=== PATIENT | male | born 1965 | race Caucasian/White ===

== ENCOUNTER 2018-05-18 01:47 | Outpatient (CLI) | payer OTHER, SELFPAY | END 2018-05-18 02:07 | PROVIDERS: PCP Family Medicine; Visit Provider Family Medicine | DX: Z12.5 Encounter for screening for malignant neoplasm of prostate (principal) | CPT/HCPCS: 36415; 84153 ==

== ENCOUNTER 2018-08-15 00:08 | Outpatient (CLI) | payer OTHER, SELFPAY ==
[2018-08-15 10:02] LABS: Hemoglobin A1C 6.1 % (4.5-6.2)
== END 2018-08-15 00:28 ==
PROVIDERS: PCP Family Medicine; Visit Provider Family Medicine
DX: E11.9 Type 2 diabetes mellitus without complications (principal)
CPT/HCPCS: 36415; 83036

== ENCOUNTER 2018-11-20 02:39 | Outpatient (CLI) | payer OTHER, SELFPAY ==
[2018-11-20 10:51] LABS: CREATININE 0.79 mg/dL (0.70-1.30)
[2018-11-20 11:22] LABS: COMMENT (LAB VIEW ONLY) 241.11 mg/dL; Microalb ug/mg Crea 8.7 ug/mg Cr
== END 2018-11-20 02:59 ==
PROVIDERS: PCP Family Medicine; Visit Provider Family Medicine
DX: E11.9 Type 2 diabetes mellitus without complications (principal)
CPT/HCPCS: 36415; 82043; 82565; 82570; 83036

== ENCOUNTER 2020-03-14 04:48 | Outpatient (CLI) | payer OTHER, SELFPAY ==
[2020-03-14 10:15] LABS: COMMENT (LAB VIEW ONLY) 149.84 mg/dL; Microalb ug/mg Crea 8.7 ug/mg Cr
[2020-03-14 10:31] LABS: CREATININE 0.81 mg/dL (0.70-1.30); Calculated LDL 139 mg/dL (<100); Cholesterol 204 mg/dL (<200); HDL Cholesterol 34 mg/dL (40-60); Potassium 4.3 mmol/L (3.5-5.1); Triglyceride 159 mg/dL (<150)
== END 2020-03-14 05:08 ==
PROVIDERS: PCP Family Medicine; Visit Provider Family Medicine
DX: E78.5 Hyperlipidemia, unspecified (principal); I10 Essential (primary) hypertension; E11.9 Type 2 diabetes mellitus without complications
CPT/HCPCS: 36415; 80061; 82043; 82565; 82570; 84132

== ENCOUNTER 2021-03-01 19:15 | Outpatient (REF) | payer OTHER, SELFPAY ==
[2021-03-03 11:37] LABS: COVID-19 RT-PCR UVMMC Result Negative (Negative)
== END 2021-03-01 19:16 | disposition home or self-care (01) ==
LOC: LBN 19:15
PROVIDERS: PCP Family Medicine; Visit Provider Nurse Practitioner Family
DX: J02.9 Acute pharyngitis, unspecified (principal); Z20.822 Contact with and (suspected) exposure to COVID-19
CPT/HCPCS: U0003; 87081

== ENCOUNTER 2021-06-22 03:15 | Outpatient (CLI) | payer OTHER, SELFPAY ==
[2021-06-22 08:16] LABS: Hemoglobin A1C 6.8 % (<5.7)
[2021-06-22 08:42] LABS: CREATININE 0.9 mg/dL (0.70-1.30); Calculated LDL 130 mg/dL (<100); Cholesterol 200 mg/dL (<200); HDL Cholesterol 36 mg/dL (40-60); Potassium 4.6 mmol/L (3.5-5.1); Triglyceride 174 mg/dL (<150)
== END 2021-06-22 03:16 | disposition home or self-care (01) ==
LOC: LBO 03:15
PROVIDERS: PCP Family Medicine; Visit Provider Family Medicine
DX: I10 Essential (primary) hypertension (principal); E78.5 Hyperlipidemia, unspecified; R73.9 Hyperglycemia, unspecified
CPT/HCPCS: 36415; 80061; 82565; 83036; 84132

== ENCOUNTER 2022-05-10 13:04 | Day surgery (SDC) | payer OTHER, SELFPAY ==
--- NOTE | 2022-05-09 20:56 | W.COLOREPORT ---
Date of service: 05/10/22 Time of Service: 14:20 Colonoscopy Report Date of procedure: 05/10/22 Pre-op diagnosis general: Routine health maintenance screening colonoscopy Post-op diagnosis procedure note: other (Cecal polyps, rectal polyp) Procedure: Screening colonoscopy Surgeon: Gordo Freeman Anesthesia Type: General:No Airway Estimated blood loss (mL): 20 Pathology: other (Cecal polyp around 95 cm, rectal polyp around 25 cm) Complications: None Disposition: same day Indications: Santosh is a 57-year-old male who was undergone screening colonoscopy in the past. He was diagnosed with a tubular adenoma, and is here in follow-up for another routine screening test Prep: Miralax/Dulcolax Procedure Start Time: 13:53 Procedure End Time: 14:10 Retraction Time: 14 Procedure Description: After the induction of monitored anesthetic care, and with the patient in left lateral decubitus position, I began by performing an external anorectal exam.? Perineum and skin were normal, as was the anal verge.? There was no evidence of external hemorrhoids.? Next, I performed a digital rectal exam.? I did not appreciate any abnormal findings.? Next, I advanced a colonoscope into the rectal vault.? I performed retroflexion.? I did not see signs of pathologic internal hemorrhoids.? Using insufflation, I then advanced the colonoscope beyond the rectal folds and into the sigmoid colon before advancing towards the cecum.? The quality of the prep was excellent.? The scope was noted to be in the cecum by identification of the ileocecal valve and appendiceal orifice.?Around 95 cm from the anal verge I identified a 1 cm polyp. ?It appeared in character. ?I was able to remove this with a hot snare. ?I examined the site, and there was minimal bleeding. ?Once this was completed, I continued to withdraw the scope and examine the remainder of the colonic mucosa. I then began withdrawing the colonoscope using repeated irrigation as necessary for full evaluation of the colonic mucosa. Around 25 cm from the anal verge I identified a 0.25 cm polyp. ?It appeared sessile in character. ?I was able to remove this with a cold forcep. ?I examined the site, and there was minimal bleeding. ?Once this was completed, I continued to withdraw the scope and examine the remainder of the colonic mucosa. ?Once the scope was withdrawn to the level of the rectum, great care was taken to examine portions of the rectal folds.? Finally, the scope was withdrawn and the patient was brought to the same-day surgery recovery unit as the anesthetic wore off. ?The findings and instructions were shared with the patient prior to discharge.
--- NOTE | 2022-05-09 20:56 | W.PM.DSUDISC ---
Date of service: 05/10/22 Time of Service: 14:36 Discharge Plan Disposition Patient Disposition: HOME Condition: Good Discharge Details Reason For Visit: Colonoscopy Attending Provider: Gordo Freeman Primary Care Provider: Matthias Jimenes Home Meds and New Rx's Prescriptions: Discontinued polyethylene glycol 3350 17 gram/dose powder 238 g PO ONCE Qty: 238 0RF Rx Instructions: take per colonoscopy instructions bisacodyl [Dulcolax (bisacodyl)] 5 mg tablet,delayed release (DR/EC) 5 mg PO ONCE Qty: 4 0RF Rx Instructions: take per colonoscopy instructions No Action Trulicity 3 mg/0.5 mL pen injector 3 mg subcut QWEEK Qty: 2 11RF acetaminophen [Tylenol Extra Strength] 500 MG tablet 1,000 mg PO daily prn (DME) blood-glucose meter [OneTouch Verio Meter] 1 EACH misc Miscellaneous BID Qty: 1 (DME) OneTouch Verio test strips Strip 1 ea Miscellaneous BID Qty: 90 3RF Rx Instructions: test once/day (DME) lancets [OneTouch UltraSoft Lancets] Misc 1 ea Miscellaneous BID 90 Days Qty: 90 3RF Rx Instructions: test once/day fluticasone propionate 50 mcg/actuation spray,suspension 2 spray intranasal DAILY Qty: 48 3RF Rx Instructions: administer into each nostril metformin 500 mg tablet extended release 24 hr 500 mg PO QPM Qty: 90 3RF losartan 25 mg tablet 25 mg PO DAILY Qty: 90 3RF clotrimazole 1 % cream 1 applic topical BID PRN Discharge Instructions Additional Instructions: 1. If tolerated, consume a soft, low fiber diet for 1-2 days. 2[address] Do not drive, drink alcohol, operate machinery, make critical decisions, or do activities that require coordination or balance for 24 hours. 3. Because air was put into your colon during the procedure, expelling air from your rectum (passing gas or farting) is normal. 4. You may not have a bowel movement for 1-3 days because of the colonoscopy prep. This is normal. 5. Go directly to the emergency room if you notice any of the following: Develop chills (warm to touch), or if you have a thermometer and your temperature is above 101 Difficulty breathing or difficultly swallowing Persistent vomiting Severe abdominal pain, other than gas cramps Severe chest pain Black, tarry stools Any bleeding ? exceeding one tablespoon 6. Call your physician if the site where your intravenous was started becomes red, swollen, painful, and warm to touch. 7. Your physician has reviewed your pre-procedure medications. Please continue to take those medications as previously ordered. You will be given specific information/education regarding any changes to your medications before leaving. Activity:: Activity as Tolerated Diet:: As Tolerated Discharge Orders Discharge Orders: Discharge Order (Routine); Ordered 05/09/22 Ordered By: Gordo Freeman DS: Diagnosis Discharge Diagnosis (1) Colorectal polyp detected on colonoscopy: Status: Acute Asessment and Plan: I will contact you with the results of the biopsies once they are available.
--- OUTSIDE RECORDS SUMMARY | 2022-05-10 13:06 | XMS_ITS | Encounter Summary ---
:1965 Author Organization [facility] Address [facility] [place] [address] Care Team Providers Name Role Phone Faustino Calvillo MD Primary Care Provider Encounter Details Date Type Department Care Team Description 07/28/2012 Orders Only Anesthesiology Kip Cowan MD [facility] [place] [address] [phone] [place], [place] [address] (Wo rk) Social History Tobacco Use Types Packs/Day Years Used Date Current Every Day Smoker Cigarettes 1 25 Smokeless Tobacco: Never Used Comments: avs information given Sex Assigned at Date Recorded Not on file documented as of this encounter Plan of Treatment Not on filedocumented as of this encounter Procedures Procedure Name Priority Date/Time Associated Diagnosis Comme nts FILM LIBRARY Routine 07/28/2012 7:30 AM Results f or this STORAGE ONLY PAIN EST procedure are in CLINIC C [facility] the results section. documented in this encounter Results Film Library-storage only pain clinic C-arm (07/28/2012 7:30 AM EST) Specimen (Source) Anatomical Collection Method Collection Time Re ceived Time Location / / Volume Laterality 07/28/2012 7:30 AM EST Narrative RAD - 02/21/2014 7:02 PM EDT This is a non-reportable exam. Procedure Note Олег Sanchez - 02/21/2014Formatti ng of this note might be different from the original. This is a non-reportable exam. Kip Cowan MD G FILM LIBRARY ORDERABLES Performing Organization Address City/State/ZIP Code Phon e Number RAD RAD [address] [place] [address] documented in this encounter Visit Diagnoses Not on filedocumented in this encounter Care Teams Clinical Ob Relationship Specialty Start Date End Date Faustino Calvillo MD PCP - General 05/04/12 [address] [place] [address] documented as of this encounter
--- OUTSIDE RECORDS SUMMARY | 2022-05-10 13:06 | XMS_ITS | Encounter Summary ---
:1965 Author Organization [facility] Address [address] [place] [address] Care Team Providers Name Role Phone Unknown, Provider Primary Care Provider Encounter Details Date Type Department Care Team Description 09/23/2014 Results Only [facility]- Latrice Carrillo, DO [phone] [facility] [place], [place] [id number] (Wo rk) Social History Tobacco Use Types Packs/Day Years Used Date Never Assessed Sex Assigned at Date Recorded Not on file documented as of this encounter Plan of Treatment Not on filedocumented as of this encounter Procedures Procedure Name Priority Date/Time Associated Diagnosis Comme [facility] SURGICAL PATHOLOGY Routine 09/23/2014 7:38 EDT Re sults for this procedure are i n the results section. documented in this encounter Results SURGICAL PATHOLOGY (09/23/2014 7:38 EDT) Pathology Report: SURGICAL PATHOLOGY REPORT [facility] Reports generated via electronic interface contain shweta ginal data; LABORATORY however they are lacking the format of the original re port. SERVICES Caution should be taken when reading/interpreting unfo rmatted reports. Name: ? TANYA GERMAIN ? Accession #: ? [id number] ? : ? 1965 (Age: 49) ??M ? Collect Date: ? 09/23/2014 ? Location: ? [facility] ? Receive Date: ? 015 ? Provider: LATRICE DUVALL DO Copy to: VIOLET VIERA MD ? Final Pathologic Diagnosis: A. COLON, SIGMOID, POLYP, BIOPSIES: - ??Fragments of tubular adenoma(s). B. COLON, DISTAL SIGMOID, POLYP, BIOPSY: - ??Juvenile-type polyp. Document reviewed and electronically signed by: SHRUTHI MCCOLLUM MD Report ??Date: 09/27/2014 13:43 By the signature above, the attending physician certif ies that he/she has personally conducted a gross and/or microscopic examin ation of the described specimens and rendered or confirmed the above diagnosi s. Specimen(s) Received: A. ?Sigmoid polyp B. ? Distal sigmoid polyp Clinical History: Rectal bleed Gross Description: A. ?Received in formalin labelled with proper p atient identification (initials R, K) and sigmoid polyp are three pink-vo tissues (0.6 x 0.3 x 0.1 cm to 0.6 x 0.4 x 0.3 cm). ??The largest fragment is b isected and entirely submitted in A1 and the two remaining fragments are copeland bmitted intact in A2. B. ?Received in formalin labelled with proper p atient identification (initials R, K) and distal sigmoid polyp is a single pink-vo polypoid tissue (0.4 x 0.4 x 0.3 cm). The margin is inked blue, the sp ecimen is bisected and entirely submitted in B1. Mirtha Gamboa 09/26/2014 9:39 AM End of Report Specimen Performing Organization Address City/State/ZIP Code Phon e Number [facility] [address] [place] [id number] SERVICES documented in this encounter Visit Diagnoses Not on filedocumented in this encounter Care Teams Paper Machine Supervisor Relationship Specialty Start Date End Date Unknown, Provider, PCP - General 09/23/14 09/26/14 documented as of this encounter
--- OUTSIDE RECORDS SUMMARY | 2022-05-10 13:06 | XMS_ITS | Encounter Summary ---
:1965 Author Organization [facility] [place] [address] Care Team Providers Name Role Phone Faustino Calvillo MD Primary Care Provider Encounter Details Date Type Department Care Team Description 06/05/2012 Procedure visit [facility] at [facility] C ervical disc [facility] MD herniation (Primary [facility] Dx) [facility] [address] [place] [facility] [address] [place] [address] [phone] Social History Tobacco Use Types Packs/Day Years Used Date Current Every Day Smoker Cigarettes 1 25 Smokeless Tobacco: Never Used Sex Assigned at Date Recorded Not on file documented as of this encounter Last Filed Vital Signs Vital Sign Reading Time Taken Comments Blood Pressure 127/92 06/05/2012 10:37 AM EST Pulse 80 06/05/2012 10:37 AM EST Temperature - - Respiratory Rate - - Oxygen Saturation 93% 06/05/2012 10:37 AM EST Inhaled Oxygen Concentration - - Weight - - Height - - Body Mass Index - - documented in this encounter Patient Instructions Patient InstructionsPosEmily briceño RN - 06/05/2012 10:38 AM EST [facility] Discharge Instructions: You were seen by Dr. [facility] MD and Irish Chinchilla MD who performed lumbar epidural steroid injection. [x] You may resume your normal activities: tomorrow. You may shower today. DO NOT tub bathe, use whirlpools, hot tubs or pool therapy for 2 days. Remove Band-Aid(s) later today/tomorrow. Do not drive until tomorrow. Use caution walking/climbing stairs as you may be unsteady on your feet. You may use your usual medications, including pain medications, as directed, unless otherwise instructed. You may use an ice pack as needed for the first 24 hours, on for 20 minutes then off for 20 minutes.Do not apply heat today. [x] You received Midazolam 2 mg through an intravenous line, to lessen the anxiety/pain of your procedure. DO NOT operate heavy or dangerous equipment/tools, or sign important papers today. Attempt to empty your bladder 4-6 hours after your procedure. You received the following medications: Depo-Medrol 120 mg, Lidocaine and Omnipaque (contrast dye). During regular business hours, please phone the Pain Management Center at for appointments or with any questions or if the following or other troubling symptoms develop: 1) Prolonged dizziness or weakness (more than 1 day). 2) Localized swelling, redness or drainage at the injection site(s). 3) Temperature of 101 degrees that lasts for more than 4 hours. After 5 PM or on weekends, call and ask for Pain Clinic provider on-call. If you are unable to reach the Pain Management Center and have a complication, please call your Primary Care Provider or proceed to your local emergency department. Special instructions: Emily Davis RN documented in this encounter Progress Notes [facility] MD - 06/05/2012 3:45 PM EST I was the attending physician supervising the resident in the above care and I was present with the resident for the entire procedure. Emily Davis RN - 06/05/2012 10:29 AM EST IV anxiolysis: Yes IV placement: Location of IV Insertion: [ ] Right [x ] Left [x ] hand [ ] anterior forearm [ ] posterior forearm [ ] AC [ ] upper arm [ ] other: IV Gauge: [ ] 24G [x ] 22G [ ] 20G After IV insertion completed, IV was secured with occlusive transparent dressing. IV site is patent and intact. Patient is without complaint upon completion of IV insertion. Started by: Emily Davis RN Initiated by: Emily Davis RN IV Solution: LR 1000ml - rate as directed by proceduralist Total Volume Intravenous Fluid infused documented in the Medication Administration Record (MAR) Site condition at IV removal: [ x ] Clear [ ] Bruised [ ] other: Administration of IV anxiolysis procedural medications documented in MAR as ordered by proceduralist Emily Davis RN - 06/05/2012 10:17 AM EST Pre-Procedure Screening Questions: 1. Status: No 2. 3. Patient states they have a dray driver to transport after procedure? Yes 4. Patient taking antibiotics at present? No 5. NPO per Pain Management Center protocol? Yes 6. 7. Patient diabetic: No __ borderline (not treated with medications) __ managed with oral medications __ managed with injected medications 8. Patient routinely taking anticoagulants ? No Date stopped Current INR Patient Vital Signs documented in Doc Flowsheets associated with this encounter. Patient Discharge Instructions were reviewed with patient and copy provided to patient. documented in this encounter Procedure Notes Irish Chinchilla MD - 06/05/2012 10:39 AM ESTAssociated Order(s): EPIDURAL STEROID INJECTION Procedure(s): EPIDURAL STEROID INJECTION Pre-Procedure Diagnose(s): Cervical disc herniation CERVICAL EPIDURAL STERIOID INJECTION PROCEDURE NOTE Santosh Germain has been referred to the Pain Management Center for cervical epidural steroid injection. Santosh Germain was greeted by the nurse who verified patients name and . Patient was then taken tothe fluoroscopy suite. Santosh Germain was interviewed and the medical record reviewed. There were no medical, pharmacologic,radiographic, or other structural contraindications to attempting fluoroscopically guided translaminar cervical epidural steroid injection. Risks and expected side effects as well as potential benefitsof the procedure were reviewed with Santosh Germain and his voiced concerns addressed. The patient consent form was signed and witnessed. Standard time-out procedure was performed. Santosh Germain was placed in the prone position on the fluoroscopy table and automated blood pressurecuff and pulse oximeter applied. The skin entry point for entering/approaching the epidural space bya intralaminal T1-T2 and marked. Following thorough Chlorhexidine preparation of the skin and draping and 1% lidocaine infiltration of the skin entry point and subcutaneous tissues, a 18 gauge touhy needle was placed under fluoroscopic guidance and with loss of resistance technique into the epidural space. Needle tip placement and depth were aided and confirmed by fluoroscopy. There was no paresthesia or return of blood or CSF through the needle. 1 cc's of Omnipaque 240 were injected with clear epidural spread confirmed with fluoroscopy. 80 mg of Depomedrol was injected. There was not any unusual discomfort expressed by Santosh Germain. Santosh Howards vital signs were stable throughout the procedure and were as recorded in nursing records. Intravenous drugs for sedation and analgesia were given as ordered by me. Midazolam 2 ml Follow up plans and appointments were discussed with Santosh Germain. Post procedure instruction was given as documented in nursing records and having met discharge criteria he was discharged from the Pain Management Center. COMMENTS: Patient tolerated procedure well. Will follow-up atilio Brown. MD Renée Fellow, Pain Medicine Pager [phone] documented in this encounter Miscellaneous Notes Miscellaneous - Provider, Scanning - 06/10/2012 11:13 AM EST documented in this encounter Plan of Treatment Not on filedocumented as of this encounter Procedures Procedure Name Priority Date/Time Associated Diagnosis Comme nts EPIDURAL STEROID Routine 06/05/2012 12:09 PM Cervical disc Res ults for this INJECTION EST herniation procedure are i n the results section. documented in this encounter Results EPIDURAL STEROID INJECTION (06/05/2012 12:09 PM EST) Narrative Irish Chinchilla MD - 06/05/2012 12:09 PM EST CERVICAL EPIDURAL STERIOID INJECTION PROCEDURE NOTE Santosh Germain has been referred to the [facility] for cervical epidural steroid injection. Santosh Germain was greeted by the nurse berry acosta verified patients name and . Patient was then taken to the fluorosco py suite. Santosh Germain was interviewed and the ca dical record reviewed. ??There were no medical, pharmacologic, radiographic, or other structural contraindications to attempting fluorosc opically guided translaminar cervical epidural steroid injection. Ris ks and expected side effects as well as potential benefits of the proced ure were reviewed with Santosh Germain and his voiced concerns addresse d. ??The patient consent form was signed and witnessed. ??Standard time-ou t procedure was performed. Santosh Germain was placed in the prone po sition on the fluoroscopy table and automated blood pressure cuff and pu lse oximeter applied. ??The skin entry point for entering/approaching the epidural space by a intralaminal T1-T2 and marked. ??Following thorough C hlorhexidine preparation of the skin and draping and 1% lidocaine infilt ration of the skin entry point and subcutaneous tissues, a 18 gauge touhy n eedle was placed under fluoroscopic guidance and with loss of r esistance technique into the epidural space. ??Needle tip placement a nd depth were aided and confirmed by fluoroscopy. There was no paresthesia or return of blood or CSF through the needle. 1 cc's of Omnipaque 240 were injected with clear epidural spread confirmed with fluoroscopy. 80 mg of Depomedrol was injected. There was not any unusual discomfort expressed by Santosh Germain. Santosh Germain's vital signs were stable throughout the procedure and were as recorded in nursing records. ??Intrav enous drugs for sedation and analgesia were ??given as ordered by me. Midazolam 2 ml Follow up plans and appointments were di scussed with Santosh Germain. Post procedure instruction was given as docum ented in nursing records and having met discharge criteria he was dis charged from the Pain Management Center. COMMENTS: Patient tolerated procedure we ll. ??Will follow-up atilio Chinchilla MD Fellow, Pain Medicine Pager [phone] Procedure Note Irish Chinchilla MD - 06/05/2012 10:39 AM EST CERVICAL EPIDURAL STERIOID INJECTION PRO CEDURE NOTE Santosh Germain has been referred to the [facility] for cervical epidural steroid injection. Santosh Germain was greeted by the nurse berry ho verified patients name and . Patient was then taken to the fluoroscopy suite. Santosh Germain was interviewed and the ca dical record reviewed. There were no medical, pharmacologic, radiographic, or other structural contraindications to attempting fluoroscopically guided translaminar cervical epidural steroid injection. Ris ks and expected side effects as well as potential benefits of the procedure were reviewed with Santosh Germain and his voiced concerns addressed. The patient consent form was signed and witnessed. Standard time-out procedure was performed. Santosh Germain was placed in the prone po sition on the fluoroscopy table and automated blood pressure cuff and pulse oximeter applied. The skin entry point for entering/approaching the epidural space by a intralaminal T1-T2 and marked. Following thorough Chl orhexidine preparation of the skin and draping and 1% lidocaine infiltration of the skin entry point and subcutaneous tissues, a 18 gauge touhy needle was placed under fluoroscopic guidance and with loss of r esistance technique into the epidural space. Needle tip placement and depth were aided and confirmed by fluoroscopy. There was no paresthesia or return of blood or CSF through the needle. 1 cc's of Omnipaque 240 were injected with clear epidural spread confirmed with fluoroscopy. 80 mg of Depomedrol was injected. There was not any unusual discomfort expressed by Santosh Germain. Santosh Puga vital signs were stable throughout the procedure and were as recorded in nursing records. Intravenous drugs for sedation and analgesia were given as ordered by ca. Midazolam 2 ml Follow up plans and appointments were di scussed with Santosh Germain. Post procedure instruction was given as documented in nursing records and having met discharge criteria he was discharged from the Pain Management Center. COMMENTS: Patient tolerated procedure we ll. Will follow-up atilio Chinchilla MD Fellow, Pain Medicine Pager [phone] [facility] MD NEUROLOGY ORDERABLES documented in this encounter Visit Diagnoses Diagnosis Cervical disc herniation - Primary Displacement of cervical intervertebral disc without myelopathy documented in this encounter Administered Medications Inactive Administered Medications - up to 3 most recent administrations Medication Order MAR Action Action Date Dose Rate Site iohexol (OMNIPAQUE) injection 1 mL Given 06/05/2012 10:30 AM EST 1 mL 1 mL, Epidural, ONCE, 1 dose, On Fri06/05/12 at 1030, Wasted 49 ml, Routine lactated ringers infusion 100 mL New Bag 06/05/2012 10:30 AM EST 100 mLs mL/hr 100 mL, Intravenous, ONCE, 1 dose, On Fri06/05/12 at 1030 methylPREDNISolone acetate (depo-MEDROL) Given 06/05/2012 10:30 AM EST 80 mg injection 80 mg 80 mg, Epidural, ONCE, 1 dose, On Fri06/05/12 at 1030, Routine midazolam (VERSED) injection 2 mg Given 06/05/2012 10:30 AM EST 2 mg 2 mg, Intravenous, ONCE, 1 dose, On Fri06/05/12 at 1030, Routine documented in this encounter Care Teams Passenger Screener Relationship Specialty Start Date End Date Faustino Calvillo MD PCP - General 05/04/12 [address] [place] [address] documented as of this encounter
--- OUTSIDE RECORDS SUMMARY | 2022-05-10 13:06 | XMS_ITS | Encounter Summary ---
:1965 Author Organization [facility] [place] [address] Care Team Providers Name Role Phone Faustino Calvillo MD Primary Care Provider Reason for Referral Consultation (Routine) - Closed Specialty Diagnoses / Procedures Referred By Contact Refer red To Contact Pain Management Diagnoses Cervical disc herniation Bob Borrero MD [facility] [address] [place] [address] [facility] [address] Fax: Referral ID Status Reason Start Date Expiration Date Visits V isits Requested Authorized [id number] Closed Consult, 06/02/2012 11/29/2012 1 1 Test & Treat Reason for Visit Reason Comments Neck Pain Encounter Details Date Type Department Care Team Description 06/02/2012 Office Visit [facility] at Bob Borrero Cervic al neck pain with evidence of disc disease; Stalin ADAM Cervical disc herniation [facility] [address], [place] [facility] [address] [place] [address] [phone] Social History Tobacco Use Types Packs/Day Years Used Date Current Every Day Smoker Cigarettes 1 25 Smokeless Tobacco: Never Used Sex Assigned at Date Recorded Not on file documented as of this encounter Last Filed Vital Signs Vital Sign Reading Time Taken Comments Blood Pressure - - Pulse - - Temperature - - Respiratory Rate - - Oxygen Saturation - - Inhaled Oxygen Concentration - - Weight 122.5 kg (270 lb) 06/02/2012 12:56 PM EST Height 182.9 cm (6') 06/02/2012 12:56 PM EST Body Mass Index 36.62 06/02/2012 12:56 PM EST documented in this encounter Progress Notes Bob Borrero MD - 06/02/2012 1:20 PM EST Chief complaint: Neck and right arm pain Subjective: He is happy to report that he has had quite good pain relief since his cervical epiduralsteroid injection 3 weeks ago and he is also regaining strength and sensation. Objective: His affect is bright. His Spurling's maneuver to the right side no disc is a little bit of neck pain but no upper extremity symptoms. His touch sensation is accurate now over the thumb indexfinger but he still has a trace loss of wrist extension on the right. Assessment: This is a good partial response to his epidural steroid injection. He feels that he has rounded second base and is heading for third still. Fortunately he is regaining nerve root function as well and so we've counseled about the option of surgical decompression and fusion or repeating his epidural injection and he would prefer the latter which makes good sense. Plan: Repeat cervical epidural steroid injection and review of progress 3 weeks thereafter. documented in this encounter Plan of Treatment Scheduled Referrals Name Type Priority Associated Diagnoses Order S chedule Referral to Pain Outpatient Referral Routine Cervical disc Ord ered: Clinic herniation 06/02/2012 documented as of this encounter Visit Diagnoses Diagnosis Cervical neck pain with evidence of disc disease Other and unspecified disc disorder of c ervical region Cervical disc herniation Displacement of cervical intervertebral disc without myelopathy documented in this encounter Care Teams Core Blower Relationship Specialty Start Date End Date Faustino Calvillo MD PCP - General 05/04/12 [address] [place] [address] documented as of this encounter
--- OUTSIDE RECORDS SUMMARY | 2022-05-10 13:06 | XMS_ITS | Encounter Summary ---
:1965 [place] [address] Care Team Providers Name Role Phone Faustino Calvillo MD Primary Care Provider Encounter Details Date Type Department Care Team Description 07/30/2012 Telephone Pain Management [place] [address] Social History Tobacco Use Types Packs/Day Years Used Date Current Every Day Smoker Cigarettes 1 25 Smokeless Tobacco: Never Used Comments: avs information given Sex Assigned at Date Recorded Not on file documented as of this encounter Miscellaneous Notes Telephone Encounter - Kassie Teresa RN - 07/30/2012 2:59 PM EST Pain Management Center Post-Procedure Phone Note Patient: Santosh Germain [id number] Post-procedure phone call from patient to report his response to the Right cervical medial branch blocks procedure performed on 07/28/12 in the Pain Management Center by Dae Mcginnis MD. Patient reports that after the procedure he experienced: _x_ Post-procedure pain has been reduced by greater than 50% for greater than 3 hours. Based on the information provided above and after discussion with the patient, the following actionswill be taken: _x_ Patient meets criteria for radiofrequency treatment and would like to proceed with a Right Cervical Radiofrequency procedure with Dae Mcginnis MD. _x_ Patient call was transferred to paralegal secretary in Pain Management Center as described above. _x_ Patient was given general information about the procedure and all their questions were answered to their satisfaction. Patient on anticoagulant medication: NO Patient has pacemaker/defibrillator: No Patient has the appropriate phone number and understands that he may contact the Pain Management Center at any time with questions or concerns. APARNA Scott documented in this encounter Plan of Treatment Not on filedocumented as of this encounter Visit Diagnoses Not on filedocumented in this encounter Care Teams Glass Mould Cleaner Relationship Specialty Start Date End Date Faustino Calvillo MD PCP - General 05/04/12 [address] [place] [address] documented as of this encounter
--- OUTSIDE RECORDS SUMMARY | 2022-05-10 13:06 | XMS_ITS | Encounter Summary ---
:1965 Author Organization [facility] Address [address] [place] [address] Care Team Providers Name Role Phone Faustino Calvillo MD Primary Care Provider Encounter Details Date Type Department Care Team Description 03/02/2021 Lab Requisition [facility] Outr Resulting Lab, Pathology & Laboratory Provider [facility] [address] [place], [place] [address] Social History Tobacco Use Types Packs/Day Years Used Date Never Assessed Sex Assigned at Date Recorded Not on file documented as of this encounter Plan of Treatment Not on filedocumented as of this encounter Procedures Procedure Name Priority Date/Time Associated Diagnosis Comme nts COVID-19 TEST [facility] Today 03/01/2021 14:45 LAB PCR EDT COVID-19 TESTING Routine 03/01/2021 14:45 Results for this EDT procedure are i n the results section. documented in this encounter Results COVID-19 TEST [facility] LAB PCR (03/01/2021 14:45 EDT) Specimen Swab - Entire nasopharynx (body structur e) Performing Organization Address City/State/ZIP Code Phon e Number [facility] [address] [place] [address] SERVICES COVID-19 TESTING (03/01/2021 14:45 EDT) COVID-19 rt-PCR Negative Negative [facility] MED[facility] Result Comment: CENTER LABORATORY This test has not been FDA c leared or approved. This test has been authorized by FDA under an EUA for use by authorized laboratories. This test has been authorized only for detection of nucleic acid fro SERVICES m 2018-nCoV, not for any oth er viruses or pathogens. This test is only authorized for the duration of the declaration that circumstances exist justifying the authorization of emergency use of in vitro d iagnostic tests for detectio n and/or diagnosis of 2019-nCoV under section 564(b)(1) of Act, 21 U.S.C ?? 360bbb-3(b) (1), unless the authorization is terminated or revoked sooner. Negative results do not prec lude 2019-nCoV infection and should not be used as the sole basis for treatment or other patient management decisions. Negative results must be combined with clinical observa tions, patient history, and epidemiological informatio n. Testing was performed using the bal SARS-CoV-2 assay ([employer] on the Bal 6800 System Performing Lab Bal [address] [facility] Lab [facility] SERVICES Specimen Swab Performing Organization Address City/State/ZIP Code Phon e Number [facility] [address] [place] [address] SERVICES documented in this encounter Visit Diagnoses Not on filedocumented in this encounter Care Teams National Sales Relationship Specialty Start Date End Date Faustino Calvillo MD PCP - General 09/27/[address] [place] [address] [place] [phone] documented as of this encounter
--- OUTSIDE RECORDS SUMMARY | 2022-05-10 13:06 | XMS_ITS | Encounter Summary ---
:1965 Author Organization [facility] [place] [address] Care Team Providers Name Role Phone Faustino Calvillo MD Primary Care Provider Encounter Details Date Type Department Care Team Description 05/15/2012 Orders Only Pain Management at D [facility] Scott Sarah MD [facility] [place] [address] PAIN CLINIC [phone] [place], [place] [address] (Wo rk) Social History Tobacco Use Types Packs/Day Years Used Date Current Every Day Smoker Cigarettes 1 25 Smokeless Tobacco: Never Used Sex Assigned at Date Recorded Not on file documented as of this encounter Plan of Treatment Not on filedocumented as of this encounter Procedures Procedure Name Priority Date/Time Associated Diagnosis Comme nts FILM LIBRARY Routine 05/15/2012 1:00 PM Results f or this STORAGE ONLY PAIN EST procedure are in CLINIC C ARM the results section. documented in this encounter Results FILM LIBRARY-STORAGE ONLY PAIN CLINIC C-ARM (05/15/2012 1:00 PM EST) Specimen (Source) Anatomical Collection Method Collection Time Re ceived Time Location / / Volume Laterality 05/15/2012 1:00 PM EST Narrative RAD - 01/24/2014 7:05 PM EDT This is a non-reportable exam. Procedure Note Олег Sanchez - 01/24/2014Formatti ng of this note might be different from the original. This is a non-reportable exam. Scott Sarah MD [facility] [place]M LIBRARY ORDERABLES Performing Organization Address City/State/ZIP Code Phon e Number RAD RAD [address] [facility] [place] [address] documented in this encounter Visit Diagnoses Not on filedocumented in this encounter Care Teams Acid Washer Operator Relationship Specialty Start Date End Date Faustino Calvillo MD PCP - General 05/04/12 [address] [place] [address] documented as of this encounter
--- OUTSIDE RECORDS SUMMARY | 2022-05-10 13:06 | XMS_ITS | Encounter Summary ---
:1965 Author Organization [facility] [place] [address] Care Team Providers Name Role Phone Faustino Calvillo MD Primary Care Provider Reason for Referral Surgical (Routine) - Closed Specialty Diagnoses / Procedures Referred By Contact Refer red To Contact Orthopaedic Surgery / Diagnoses Cervical disc herniation Cervical neck pain with evidence of disc disease Bob Borrero [facility] [address] [place] [facility] [address] [address] Referral ID Status Reason Start Date Expiration Date Visits V isits Requested Authorized [id number] Closed Consult, 07/08/2012 01/04/2013 1 1 Test & Treat Reason for Visit Reason Comments Other follow up to [facility] - made sx' s worse Neck And Shoulder Pain right shoulder, new onset of burning sensation posterior neck since [facility] Headache starting june 26 Encounter Details Date Type Department Care Team Description 07/08/2012 Office Visit [facility] at Bob Borrero Cervic al disc herniation; Stalin ADAM Cervical neck pain with evidence of disc disease [facility] [address] [place] [place] [facility] [address] [address] [phone] Social History Tobacco Use Types Packs/Day Years Used Date Current Every Day Smoker Cigarettes 1 25 Smokeless Tobacco: Never Used Tobacco Cessation: Ready to Quit: No; Co unseling Given: Yes Comments: avs information given Sex Assigned at Date Recorded Not on file documented as of this encounter Patient Instructions Patient InstructionsDevinRosey martinez, CUFFER - 07/08/2012 4:24 PM EST Stopping Smoking: After Your Visit Your Care Instructions Cigarette smokers crave the nicotine in cigarettes. Giving it up is much harder than simply changinga habit. Your body has to stop craving the nicotine. It is hard to quit, but you can do it. There are many tools that people use to quit smoking. You may find that combining tools works best for you. There are several steps to quitting. First you get ready to quit. Then you get support to help you. After that, you learn new skills and behaviors to become a nonsmoker. For many people, a necessary step is getting and using medicine. Your doctor will help you set up the plan that best meets your needs. You may want to attend a smoking cessation program to help you quit smoking. When you choose a program, look for one that has proven success. Ask your doctor for ideas. You will greatly increase your chances of success if you take medicine as well as get counseling or join a cessation program. Some of the changes you feel when you first quit tobacco are uncomfortable. Your body will miss the nicotine at first, and you may feel short-tempered and grumpy. You may have trouble sleeping or concentrating. Medicine can help you deal with these symptoms. You may struggle with changing your smokinghabits and rituals. The last step is the tricky one: Be prepared for the smoking urge to continue for a time. This is a lot to deal with, but keep at it. You will feel better. Follow-up care is a rosas part of your treatment and safety. Be sure to make and go to all appointments, and call your doctor if you are having problems. It???s also a good idea to know your test resultsand keep a list of the medicines you take. How can you care for yourself at home? Ask your family, friends, and coworkers for support. You have a better chance of quitting if you have help and support. Join a support group, such as Nicotine Anonymous, for people who are trying to quit smoking. Consider signing up for a smoking cessation program, such as the [employer]'s Freedomfrom Smoking program. Set a quit date. Pick your date carefully so that it is not right in the middle of a big deadline orstressful time. Once you quit, do not even take a puff. Get rid of all ashtrays and lighters after your last cigarette. Clean your house and your clothes so that they do not smell of smoke. Learn how to be a nonsmoker. Think about ways you can avoid those things that make you reach for a cigarette. Avoid situations that put you at greatest risk for smoking. For some people, it is hard to have a drink with friends without smoking. For others, they might skip a coffee break with coworkers who smoke. Change your daily routine. Take a different route to work or eat a meal in a different place. Cut down on stress. Calm yourself or release tension by doing an activity you enjoy, such as readinga book, taking a hot bath, or gardening. Talk to your doctor or pharmacist about nicotine replacement therapy, which replaces the nicotine inyour body. You still get nicotine but you do not use tobacco. Nicotine replacement products help youslowly reduce the amount of nicotine you need. These products come in several forms, many of them available [id number]: Nicotine patches Nicotine gum and lozenges Nicotine inhaler Ask your doctor about bupropion (Wellbutrin) or varenicline (Chantix), which are prescription medicines. They do not contain nicotine. They help you by reducing withdrawal symptoms, such as stress and anxiety. Some people find hypnosis, acupuncture, and massage helpful for ending the smoking habit. Eat a healthy diet and get regular exercise. Having healthy habits will help your body move past itscraving for nicotine. Be prepared to keep trying. Most people are not successful the first few times they try to quit. Do not get mad at yourself if you smoke again. Make a list of things you learned and think about when you want to try again, such as next week, next month, or next year. Visit our health information library at [email or web address]/healthinfo. You can also view health information on mAPPn, your personal patient account. Log in or sign up today. Enter Y522 in the search box to learn more about Stopping Smoking: After Your Visit. ?? [id number] [employer]. Care instructions adapted under license by [facility]. This care instruction is for use with your licensed healthcare professional. If you have questionsabout a medical condition or this instruction, always ask your healthcare professional. [employer] disclaims any warranty or liability for your use of this information. Content Version: 9.1.714857; Last Revised: January 23, 2011 documented in this encounter Progress Notes Bob Borrero MD - 07/08/2012 4:48 PM EST Chief complaint: Neck and right arm pain, paresthesias, cervical disc herniation Subjective: Unfortunately, he really got no benefit from his second epidural steroid injection and in fact his neck pain is much worse, now radiating at times to the right side of his head and down to the deltoid area. No more distal pain and then on a regular basis but he does play still having paresthesias going down to and proximally see 67 distribution. Objective: His affect is bright. His physical examination was not repeated given the stability of his symptoms. Assessment: This is a counseling based visit for 15 minutes talking about his options in terms of surgery and the usual indication being nerve root pain as opposed to axial pain. He and his have agood understanding of this and he is quite insistent that he wants to DrMatilde beebe about decompression and fusion and I think it's reasonable to have this discussion so we've mutually decided to proceedas follows. Plan: Spine surgical consultation as requested. He is going to continue his current medications in the meantime. documented in this encounter Plan of Treatment Scheduled Referrals Name Type Priority Associated Diagnoses Order S chedule Referral to Spine Outpatient Referral Routine Cervical disc Or dered: Center herniation 07/08/2012 Cervical neck pain with evidence of disc disease documented as of this encounter Visit Diagnoses Diagnosis Cervical disc herniation Displacement of cervical intervertebral disc without myelopathy Cervical neck pain with evidence of disc disease Other and unspecified disc disorder of c ervical region documented in this encounter Care Teams Lead Business Analyst Relationship Specialty Start Date End Date Faustino Calvillo MD PCP - General 05/04/12 [address] [place] [address] documented as of this encounter
--- OUTSIDE RECORDS SUMMARY | 2022-05-10 13:06 | XMS_ITS | Clinical Summary ---
:1965 Author Organization [facility] Address [address] [place] [address] Care Team Providers Name Role Phone Faustino Calvillo MD Primary Care Provider Social History Tobacco Use Types Packs/Day Years Used Date Never Assessed Sex Assigned at Date Recorded Not on file Plan of Treatment Not on file Care Teams Facility Attendant Relationship Specialty Start Date End Date Faustino Calvillo MD PCP - General 09/27/14 [address] [facility] [address] [place], [place] [id number]
--- OUTSIDE RECORDS SUMMARY | 2022-05-10 13:06 | XMS_ITS | Encounter Summary ---
:1965 [place] [address] Care Team Providers Name Role Phone Faustino Calvillo MD Primary Care Provider Reason for Visit Reason Comments Neck And Arm Pain Encounter Details Date Type Department Care Team Description 05/15/2012 Procedure visit Pain Management at [facility] C ervical neck pain with evidence of disc disease; [facility] Cervical disc herniation [facility] [address] [place] [facility] [id number] [place] [address] [phone] Social History Tobacco Use Types Packs/Day Years Used Date Current Every Day Smoker Cigarettes 1 25 Smokeless Tobacco: Never Used Sex Assigned at Date Recorded Not on file documented as of this encounter Last Filed Vital Signs Vital Sign Reading Time Taken Comments Blood Pressure 137/96 05/15/2012 1:31 PM EST Pulse 73 05/15/2012 1:31 PM EST Temperature - - Respiratory Rate - - Oxygen Saturation 96% 05/15/2012 1:31 PM EST Inhaled Oxygen Concentration - - Weight 122.5 kg (270 lb) 05/15/2012 12:58 PM EST Height 182.9 cm (6') 05/15/2012 12:58 PM EST Body Mass Index 36.62 05/15/2012 12:58 PM EST documented in this encounter Patient Instructions Patient InstructionsMallika Atkinson RN - 05/15/2012 1:32 PM EST Pain [facility] Center Discharge Instructions: You were seen by Dr. Scott Sarah MD who performed cervical epidural steroid injection. [x] You may resume [...] dangerous equipment/tools, or sign important papers today. You received the following medications: Depo-Medrol 80 mg, Lidocaine and Omnipaque (contrast dye). During [...] or proceed to your local emergency department. Mallika Atkinson RN BSN documented in this encounter Progress Notes Scott Sarah MD - 05/15/2012 3:27 PM EST I was the attending physician supervising the resident in the above care and I was present with the resident for the entire procedure. Mallika Atkinson RN - 05/15/2012 1:19 PM EST Pre-Procedure Screening Questions: 1. Status: No 2. 3. Patient states they have a pick up and delivery driver to transport after procedure? Yes 4. Patient taking antibiotics at present? No 5. NPO per Pain Management Center protocol? Yes 6. 7. Patient diabetic: No __ borderline (not treated with medications) __ managed with oral medications __ managed with injected medications 8. Patient routinely taking anticoagulants ? No Date stopped Current INR IV anxiolysis: Yes IV placement: Location of IV Insertion: [ x ] Right [ ] Left [ x ] hand [ ] anterior forearm [ ] posterior forearm [ ] AC [ ] upper arm [ ] other: IV Gauge: [ ] 24G [ x ] 22G [ ] 20G After IV insertion completed, IV was secured with occlusive transparent dressing. IV site is patent and intact. Patient is without complaint upon completion of IV insertion. Started by: Mallika Atkinson RN BSN Initiated by: Mallika ALSTONN IV Solution: LR 1000ml - rate as directed by proceduralist Total Volume Intravenous Fluid infused documented in the Medication Administration Record (MAR) Site condition at IV removal: [x ] Clear [ ] Bruised [ ] other: Administration of IV anxiolysis procedural medications documented in MAR as ordered by proceduralist Patient Vital Signs documented in Doc Flowsheets associated with this encounter. Patient Discharge Instructions were reviewed with patient and copy provided to patient. documented in this encounter Procedure Notes Vitaly Enrico - 05/15/2012 1:36 PM ESTAssociated Order(s): EPIDURAL STEROID INJECTION Procedure(s): EPIDURAL STEROID INJECTION Pre-Procedure Diagnose(s): Cervical neck pain with evidence of disc disease CERVICAL EPIDURAL STERIOID INJECTION PROCEDURE NOTE Santosh [...] benefitsof the procedure were reviewed with Santosh Marcellus and his voiced concerns addressed. The patient consent form was signed and witnessed. Standard time-out procedure was performed. Santosh Germain was placed in the prone position on the fluoroscopy table and automated blood pressurecuff and pulse oximeter applied. The skin entry point for entering/approaching the epidural space bya mildine T1-T2 and marked. Following thorough Chlorhexidine preparation of the skin and draping and1% lidocaine infiltration of the skin entry point and subcutaneous tissues, a 18 gauge touhy needle was placed under fluoroscopic guidance and with loss of resistance technique into the epidural space.Needle tip placement and depth were aided and confirmed by fluoroscopy. There was no paresthesia or return of blood or CSF through the needle. 0.5 cc's of Omnipaque 240 were injected with clear epidural spread confirmed with fluoroscopy. 80 mg of Depomedrol was injected. There was not any unusual discomfort expressed by Santosh Germain. Santosh Germain's vital signs were stable throughout the procedure and were as recorded in nursing records. Intravenous drugs for sedation and analgesia were given as ordered by me. Midazolam 2 mg Follow up plans and appointments were discussed with Santosh Germain. Post procedure instruction was given as documented in nursing records and having met discharge criteria he was discharged from the Pain Management Center. COMMENTS: Patient tolerated the procedure without complaints. Questions sought and answered. documented in this encounter Miscellaneous Notes Miscellaneous - Samuel, Gold Blower - 05/20/2012 11:11 AM EST documented in this encounter Plan of Treatment Not on filedocumented as of this encounter Procedures Procedure Name Priority Date/Time Associated Diagnosis Comme nts EPIDURAL STEROID Routine 05/15/2012 1:37 PM Cervical neck pain Results for this INJECTION EST with evidence of procedure a re in disc disease the results section. documented in this encounter Results EPIDURAL STEROID INJECTION (05/15/2012 1:37 PM EST) Narrative Enrico Haider - 05/15/2012 1:37 PM EST CERVICAL EPIDURAL STERIOID INJECTION PROCEDURE NOTE Santosh Germain has been referred to the [facility] for cervical epidural steroid injection. Santosh Germani was greeted by the nurse berry acosta [...] for entering/approaching the epidural space by a mildine T1-T2 and marked. ??Following thorough Chlorhe xidine preparation of the skin and draping and [...] of blood or CSF through the needle. 0.5 cc's of Omnipaque 240 we re injected with clear epidural spread confirmed with fluoroscopy. 80 mg of Depomedrol was injected. There was not any unusual discomfort expressed by Santosh Germain. Santosh Germain's vital signs were stable throughout the procedure and were as recorded in nursing records. ??Intrav enous drugs for sedation and analgesia were ??given as ordered by me. Midazolam 2 mg Follow up plans and appointments were di scussed with Santosh Germain. Post procedure instruction was given as docum ented in nursing records and having met discharge criteria he was dis charged from the Pain Management Center. COMMENTS: Patient tolerated the procedur e without complaints. ??Questions sought and answered. Procedure Note Vitaly Enrico - 05/15/2012 1:36 PM ESTFo rmatting of this note might be different from the original. CERVICAL EPIDURAL STERIOID INJECTION PRO CEDURE NOTE Santosh Germain has been referred to the [facility] for cervical epidural steroid injection. [...] for entering/approaching the epidural space by a mildine T1-T2 and marked. Following thorough Chlorhexi dine preparation of the skin and draping and 1% lidocaine infiltration of the skin entry point and subcutaneous tissues, a 18 gauge touhy needle was placed under fluoroscopic guidance and with loss of r esistance technique into the epidural space. Needle tip placement and depth were aided and confirmed by fluoroscopy. There was no paresthesia or return of blood or CSF through the needle. 0.5 cc's of Omnipaque 240 we re injected with clear epidural spread confirmed with fluoroscopy. 80 mg of Depomedrol was injected. There was not any unusual discomfort expressed by Santosh Germain. Santosh Germain's vital signs were stable throughout the procedure and were as recorded in nursing records. Intravenous drugs for sedation and analgesia were given as ordered by ca. Midazolam 2 mg Follow up plans and appointments were di scussed with Santosh Germain. Post procedure instruction was given as documented in nursing records and having met discharge criteria he was discharged from the Pain Management Center. COMMENTS: Patient tolerated the procedur e without complaints. Questions sought and answered. Scott Sarah MD NEUROLOGY ORDERABLES documented in this encounter Visit Diagnoses Diagnosis Cervical neck pain with evidence of disc disease Other and unspecified disc disorder of c ervical region Cervical disc herniation Displacement of cervical intervertebral disc without myelopathy documented in this encounter Administered Medications Inactive Administered Medications - up to 3 most recent administrations Medication Order MAR Action Action Date Dose Rate Site iohexol (OMNIPAQUE) injection 1 mL Given 05/15/2012 1:30 PM EST 1 mL 1 mL, Epidural, ONCE, 1 dose, On 05/15/12 at 1330, Wasted 49 ml, Routine lactated ringers infusion 100 mL New Bag 05/15/2012 1:30 PM EST 100 mLs mL/hr 100 mL, Intravenous, ONCE, 1 dose, On Fri05/15/12 at 1330 methylPREDNISolone acetate (depo-MEDROL) Given 05/15/2012 1:30 P M EST 80 mg injection 80 mg 80 mg, Epidural, ONCE, 1 dose, On Fri05/15/12 at 1330, Routine midazolam (VERSED) injection 2 mg Given 05/15/2012 1:33 PM EST 2 mg 2 mg, Intravenous, ONCE PRN, 1 dose, Starting on Fri05/15/12 at 1332, Until Fri05/15/12 at 1333, Anxiety, Routine documented in this encounter Care Teams News Assistant Relationship Specialty Start Date End Date Faustino Calvillo MD PCP - General 05/04/12 [address] [place] [address] documented as of this encounter
--- OUTSIDE RECORDS SUMMARY | 2022-05-10 13:06 | XMS_ITS | Encounter Summary ---
:1965 Author Organization [facility] [place] [address] Care Team Providers Name Role Phone Faustino Calvillo MD Primary Care Provider Encounter Details Date Type Department Care Team Description 06/05/2012 Orders Only Pain Management at [facility] Scott Sarah MD [facility] [place] [address] PAIN CLINIC [phone] [place], [place] [address] (Wo rk) Social History Tobacco Use Types Packs/Day Years Used Date Current Every Day Smoker Cigarettes 1 25 Smokeless Tobacco: Never Used Sex Assigned at Date Recorded Not on file documented as of this encounter Plan of Treatment Not on filedocumented as of this encounter Procedures Procedure Name Priority Date/Time Associated Diagnosis Comme nts FILM LIBRARY Routine 06/05/2012 10:45 AM Results for this STORAGE ONLY PAIN EST procedure are in CLINIC C ARM the results section. documented in this encounter Results FILM LIBRARY-STORAGE ONLY PAIN CLINIC C-ARM (06/05/2012 10:45 AM EST) Specimen (Source) Anatomical Collection Method Collection Time Re ceived Time Location / / Volume Laterality 06/05/2012 10:45 AM EST Narrative RAD - 02/21/2014 7:02 PM EDT This is a non-reportable exam. Procedure Note Олег Sanchez - 02/21/2014Formatti ng of this note might be different from the original. This is a non-reportable exam. Scott Sarah MD [facility] FILM LIBRARY ORDERABLES Performing Organization Address City/State/ZIP Code Phon e Number RAD RAD [address] [facility] [place] [address] documented in this encounter Visit Diagnoses Not on filedocumented in this encounter Care Teams Flow Specialist Relationship Specialty Start Date End Date Faustino Calvillo MD PCP - General 05/04/12 [address] [place] [address] documented as of this encounter
--- OUTSIDE RECORDS SUMMARY | 2022-05-10 13:06 | XMS_ITS | Encounter Summary ---
:1965 Author Organization [facility] [place] [address] Care Team Providers Name Role Phone Faustino Calvillo MD Primary Care Provider Reason for Referral Physical Therapy (Routine) - Closed by system - unspecified Specialty Diagnoses / Procedures Referred By Contact Refer red To Contact Physical Therapy Diagnoses Cervical neck pain with evidence of disc [place] [address] Referral ID Status Reason Start Expiration Visits Visits Date Date Requested Authorized [id number] Closed by Evaluate and 07/13/2012 01/09/2013 1 1 system - Treat unspecified onsultation (Routine) - Closed Specialty Diagnoses / Procedures Referred By Contact Refer red To Contact Pain Management Diagnoses Cervical neck pain with evidence of disc disease Carlos Jacobs MD [facility] [address] [place] [phone] Fax: Referral ID Status Reason Start Date Expiration Date Visits V isits Requested Authorized [id number] Closed Consult Only 07/13/2012 01/09/2013 1 1 Reason for Visit Reason Comments Neck And Shoulder Pain right side Encounter Details Date Type Department Care Team Description 07/13/2012 Office Visit Spine Center at [facility], Cervical neck pain Sheri ADAM with evidence of disc [facility] dis ease (Primary Dx) Drive [address] [place] [facility] [address] [place] [address] [phone] Social History Tobacco Use Types Packs/Day Years [...] - - Weight 122.5 kg (270 lb) 07/13/2012 2:15 PM EST Height 182.9 cm (6') 07/13/2012 2:15 PM EST Body Mass Index 36.62 07/13/2012 2:15 PM EST documented in this encounter Progress Notes Carlos Jacobs MD - 07/13/2012 3:17 PM EST CHIEF COMPLAINT: Neck pain and resolved right upper extremity pain. HISTORY OF PRESENT ILLNESS: Mr. Germain is a 47-year-old right-hand dominant male seen in consultation for Dr. Borrero in regard to his neck pain. He was doing well until this past December when he had insidious onset of neck pain that radiated over his right shoulder, down to his right arm and to the radial two digits. It was associated with numbness in the radial two digits as well as a sense of weakness about his hand and wrist. He underwent epidural steroid injection in April and another one in May. The first injection resulted in complete resolution of his arm symptoms; however, he was left with neck symptoms that failed to improve with the second injection. His neck pain is worse with flexion, improved with extension. It does bother at night. He denies any change in his gait or fine motor skills. He denies constitutional symptoms or change in his bowel or bladder function. He has not done physical therapy. He has taken ibuprofen 600 mg three times daily. He has taken tramadol as needed at night. He has not had prior spine surgery. PAST MEDICAL HISTORY: None. PAST SURGICAL HISTORY: None. MEDICATIONS: Reviewed are in e-DH. ALLERGIES: Reviewed are in E-DH. FAMILY HISTORY: Lung cancer in his father. 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 He has not missed any work. He smokes one pack per day and does not drink. REVIEW OF SYSTEM: All negative except musculoskeletal as above. PHYSICAL EXAMINATION: The patient is 6 feet tall, 270 pounds. General: The patient is comfortable, no acute distress. Neck: His neck is nontender to palpation. He flexes 60 degrees, extends 40 degrees, rotates 40 degrees, and side bend to 30 degrees. Neurologic Exam: He walks with a normal gait. He can perform tandem gait, heel walk, and toe walk without difficulty. Motor exam reveals 5/5 strength in all upper extremity muscle groups. He has a normal sensory exam. Reflexes are 2/4 throughout the upper and lower extremities and symmetric. Positive Tinel's test bilateral over his cubital tunnel. Median nerve compression test is negative bilaterally. Spurling's, Araceli, clonus, and Babinski are all negative. Shoulder Exam: Normal, painless range of motion, both shoulders. Vascular Exam: He has palpable pulses bilaterally. IMAGING: MRI of the cervical spine from 04/22/2012 demonstrates some mild degenerative changes throughout the cervical spine and most pronounced at C5-6. At C5-6, he has a right-sided disk herniation that compresses the exiting C6 root. He otherwise has no neural compression. ASSESSMENT/PLAN: Mr. Germain is a 47-year-old male who presents with axial neck pain and resolved C6 radiculopathy. I described treatment options for axial neck pain, including antiinflammatory medications, physical therapy, and medial branch blocks with radiofrequency ablation if indicated. I suggested that surgery is indicated for radiculopathy, and the fact that his radiculopathy has resolved means he is no longer a surgical candidate. I explained that surgery for axiaal neck pain had poor results. He would like to proceed with medial branch blocks with radiofrequency ablation if indicated and then try physical therapy following that. He will continue taking anti-inflammatories. I suggested that if he continued to have problems with his neck that he best follow up with Dr. Borrero unless his radiculopathy returns, in which case I would be happy to see him to discuss surgical options. documented in this encounter Plan of Treatment Scheduled Referrals Name Type Priority Associated Diagnoses Order S chedule Referral to Pain Outpatient Referral Routine Cervical neck josiane n Ordered: Clinic with evidence of 07/13/2012 disc disease Referral to Outpatient Referral Routine Cervical neck pain Or dered: Physical Therapy with evidence of 013 disc disease documented as of this encounter Visit Diagnoses Diagnosis Cervical neck pain with evidence of disc disease - Primary Other and unspecified disc disorder of c ervical region documented in this encounter Care Teams Web Solutions Architect Relationship Specialty Start Date End Date Faustino Calvillo MD PCP - General 05/04/12 [address] [place] [address] documented as of this encounter
--- OUTSIDE RECORDS SUMMARY | 2022-05-10 13:06 | XMS_ITS | Encounter Summary ---
:1965 [place] [address] Care Team Providers Name Role Phone Faustino Calvillo MD Primary Care Provider Encounter Details Date Type Department Care Team Description 07/03/2012 Abstract Spine Center at [facility] [place] [address] Social History Tobacco Use Types Packs/Day Years Used Date Current Every Day Smoker Cigarettes 1 25 Smokeless Tobacco: Never Used Sex Assigned at Date Recorded Not on file documented as of this encounter Plan of Treatment Not on filedocumented as of this encounter Visit Diagnoses Not on filedocumented in this encounter Care Teams Vaccine Customer Representative Relationship Specialty Start Date End Date Faustino Calvillo MD PCP - General 05/04/12 [address] [place] [address] documented as of this encounter
--- OUTSIDE RECORDS SUMMARY | 2022-05-10 13:06 | XMS_ITS | Encounter Summary ---
:1965 [place] [address] Care Team Providers Name Role Phone Faustino Calvillo MD Primary Care Provider Encounter Details Date Type Department Care Team Description 06/01/2012 Abstract [facility] Center at [facility] [place] [address] Social History Tobacco Use Types Packs/Day Years Used Date Current Every Day Smoker Cigarettes 1 25 Smokeless Tobacco: Never Used Sex Assigned at Date Recorded Not on file documented as of this encounter Plan of Treatment Not on filedocumented as of this encounter Visit Diagnoses Not on filedocumented in this encounter Care Teams Electronics Technology Department Chair Relationship Specialty Start Date End Date Faustino Calvillo MD PCP - General 05/04/12 [address] [facility] [place] [address] documented as of this encounter
--- OUTSIDE RECORDS SUMMARY | 2022-05-10 13:06 | XMS_ITS | Encounter Summary ---
:1965 Author Organization [facility] [place] [address] Care Team Providers Name Role Phone Faustino Calvillo MD Primary Care Provider Reason for Referral Consultation (Routine) - Closed Specialty Diagnoses / Procedures Referred By Contact Refer red To Contact Pain Management Diagnoses Cervical neck pain with evidence of disc disease Bob Borrero MD [facility] [phone] [place] [address] Fax: Referral ID Status Reason Start Date Expiration Date Visits V isits Requested Authorized [id number] Closed Consult, 05/06/2012 11/02/2012 1 1 Test & Treat Reason for Visit Reason Comments Neck Pain herniated disc, tingling sen sation in the base of the neck Right Arm Pain goes into the fingertips, wi th intermittent numbness in fingertips Right Shoulder Pain Encounter Details Date Type Department Care Team Description 05/06/2012 Office Visit [facility] at Bob Borrero Cervic al neck pain Stalin ADMA with evidence of disc [facility] dis ease (Primary Dx) Drive [place] [facility] [address] [place] [address] [phone] Social History Tobacco Use Types Packs/Day Years Used Date Current Every Day Smoker Cigarettes 1 25 Smokeless Tobacco: Never Used Tobacco Cessation: Counseling Given: Yes Sex Assigned at Date Recorded Not on file documented as of this encounter Last Filed Vital Signs Vital Sign Reading Time Taken Comments Blood Pressure 126/80 05/06/2012 2:38 PM EDT Pulse - - Temperature - - Respiratory Rate - - Oxygen Saturation - - Inhaled Oxygen Concentration - - Weight 122.5 kg (270 lb) 05/06/2012 2:38 PM EDT Height 182.9 cm (6') 05/06/2012 2:38 PM EDT Body Mass Index 36.62 05/06/2012 2:38 PM EDT documented in this encounter Patient Instructions Patient InstructionsBulRosey nicolas, RN ADMISSION - 05/06/2012 2:39 PM EDT Welcome to [email or web address], your secure online access to your electronic medical record at [facility]. Using [email or web address] you will be able to send messages to your providers, view your test results, renew prescriptions, schedule appointments, and much more. Follow these instructions to enter your personal [email or web address] account for the first time: 1. Start your internet browser and type [email or web address] into the address bar. 2. In the New User box on the right-hand side of the Welcome page click the link that states, ???I have an activation code.?? 3. On the Identification page, follow these steps: a) Enter your [email or web address] activation code: [email or web address] b) Expires: 06/20/12 02:39 PM IMPORTANT: This Activation Code will on the above mentioned date. If you do not sign up for [email or web address] by this date, you will need to request another activation code. c) Enter your date of , using the calendar tool provided. d) Enter your Zip code. e) Select ???submit?? to go to the next page. 4. On the Create Account page, follow these steps: a) Create a awe.sm username. This can???t be changed, so choose one you won???t forget. b) Create a password that???s at least six characters long, and that contains at least two numbers. Your password can be changed at any time. Confirm your password by entering it once more. c) Enter your email address. This will be used to alert you to new information. Confirm your email address by entering it once more. d) Enter your security question. This will be used if you forget your password. e) Enter your security answer. Confirm your security answer by entering it once more. f) Select ???submit?? to view your electronic medical record. If you have any questions about myD-H or your Access Code, please call for [place], for [place] or for [place]. If you need technical support, please e-mail [email or web address]. Remember, myD-H is NOT for urgent needs! Always dial 911 for medical emergencies. Stopping Smoking: After Your Visit Your Care [...] a smoking cessation program, such as the [place] [employer]'s Freedomfrom Smoking program. Set a [...] in several forms, many of them available [id number]: Nicotine patches Nicotine gum and lozenges Nicotine [...] year. Visit our health information library at [email or web address]. You can also view health information on [employer], your personal patient account. Log in or sign up today. Enter Y522 in the search box to learn more about Stopping Smoking: After Your Visit. ?? [id number] [employer]. Care instructions adapted under license by [email or web address]. This care instruction is for use with your licensed healthcare professional. If you have questionsabout a medical condition or this instruction, always ask your healthcare professional. [employer] disclaims any warranty or liability for your use of this information. Content Version: [id number]; Last Revised: January 23, 2011 documented in this encounter Progress Notes Bob Borrero MD - 05/06/2012 3:48 PM EDT Chief complaint: Right upper extremity pain and numbness Subjective in 12/16 without injury or incident he began having numbness in his thumb and index on theright and this is gradually over the ensuing months progressed to involve discomfort in numbness forin this distribution through the arm and posterior shoulder and most recently in his neck with posterior headache. This latter complication is just occurring in the past few days. He's had chiropracticcare without benefit. He is taking tramadol and Advil. He thinks that the symptoms have gradually progressed in severity for the worse. Objective: His affect is bright. His cervical flexibility is important for exact reproduction of hisneck and proximal arm pain with extension and coupled right side flexion. His shoulder shrug is fulland powerful there is no scapular winging. Touch sensation is dysesthetic over the thumb index on the right and his wrist extension and elbow flexion and rotation are one point down on the right compared to the left. He is symmetrically hyporeflexic throughout the upper extremities. His gait does not reflect ataxia and Araceli sign is absent. His cervical MRI was reviewed with him. He most importantly has a rightward disc herniation at C5-6. 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 Therefore this is a counseling based visit repeated with his mother with that discussion for 30 of this 45 minutevisit about his options including temporizing, physical care, epidural steroid injection, surgical decompression and fusion with ACDF. I think is a good understanding of these issues and we've mutuallydecided to proceed as follows. Plan: Cervical epidural steroid injection and review of progress 3 weeks thereafter. documented in this encounter Plan of Treatment Scheduled Referrals Name Type Priority Associated Diagnoses Order S chedule Referral to Pain Outpatient Referral Routine Cervical neck josiane n Ordered: Clinic with evidence of 05/06/2012 disc disease documented as of this encounter Visit Diagnoses Diagnosis Cervical neck pain with evidence of disc disease - Primary Other and unspecified disc disorder of c ervical region documented in this encounter Care Teams Engine Oiler Relationship Specialty Start Date End Date Faustino Calvillo MD PCP - General 05/04/12 [address] [place] [address] documented as of this encounter
--- OUTSIDE RECORDS SUMMARY | 2022-05-10 13:06 | XMS_ITS | Encounter Summary ---
:1965 [place] [address] Care Team Providers Name Role Phone Faustino Calvillo MD Primary Care Provider Reason for Visit Reason Onset Date Comments Post Procedure Call 07/30/2012 Encounter Details Date Type Department Care Team Description 07/30/2012 Telephone Pain Management at [facility] P ost Procedure [place] [address] Social History Tobacco Use Types Packs/Day Years Used Date Current Every Day Smoker Cigarettes 1 25 Smokeless Tobacco: Never Used Comments: avs information given Sex Assigned at Date Recorded Not on file documented as of this encounter Miscellaneous Notes Telephone Encounter - Kassie Teresa RN - 07/30/2012 2:03 PM EST I have attempted to contact this patient by phone with the following results: left message to returnmy call on answering machine. documented in this encounter Plan of Treatment Not on filedocumented as of this encounter Visit Diagnoses Not on filedocumented in this encounter Care Teams Special Day Class Teacher Relationship Specialty Start Date End Date Faustino Calvillo MD PCP - General 05/04/12 [address] [facility] [place] [id number] documented as of this encounter
--- OUTSIDE RECORDS SUMMARY | 2022-05-10 13:06 | XMS_ITS | Encounter Summary ---
:1965 [place] [address] Care Team Providers Name Role Phone Faustino Calvillo MD Primary Care Provider Encounter Details Date Type Department Care Team Description 04/22/2012 Orders Only Sp[facility] Center at [facility] Bob Borrero MD [facility] [place] [place] [address] SP[facility]ENTER [phone] [place], [place] [address] (Wo rk) Social History Tobacco Use Types Packs/Day Years Used Date Never Assessed Sex Assigned at Date Recorded Not on file documented as of this encounter Plan of Treatment Not on filedocumented as of this encounter Procedures Procedure Name Priority Date/Time Associated Diagnosis Comme nts FILM LIBRARY Routine 04/22/2012 9:15 AM Results f or this STORAGE ONLY MR EDT procedure ar e in SPINE the results section. documented in this encounter Results FILM LIBRARY- STORAGE ONLY MR SPINE (04/22/2012 9:15 AM EDT) Anatomical Region Laterality Modality Other Specimen (Source) Anatomical Collection Method Collection Time Re ceived Time Location / / Volume Laterality 04/22/2012 9:15 AM EDT Narrative 08/26/2013 9:41 PM EST This is a non-reportable exam. Procedure Note Rodolfo Sanchez - 08/26/2013Formatting of t his note might be different from the original. This is a non-reportable exam. Bob Borrero MD IMG FILM LIBRARY ORDERABLES documented in this encounter Visit Diagnoses Not on filedocumented in this encounter Care Teams Hr Operations Advisor Relationship Specialty Start Date End Date Faustino Calvillo MD PCP - General 05/04/12 [address] [place] [address] documented as of this encounter
--- OUTSIDE RECORDS SUMMARY | 2022-05-10 13:06 | XMS_ITS | Encounter Summary ---
:1965 Author Organization [facility] [place] [address] Care Team Providers Name Role Phone Faustino Calvillo MD Primary Care Provider Encounter Details Date Type Department Care Team Description 05/05/2012 External Results XRay at [facility] Faustino Calvillo MD [address] [place] [address] [address] [place] [address] [place] [phone] (Wo rk) Social History Tobacco Use Types Packs/Day Years Used Date Never Assessed Sex Assigned at Date Recorded Not on file documented as of this encounter Plan of Treatment Not on filedocumented as of this encounter Procedures Procedure Name Priority Date/Time Associated Diagnosis Comme nts MRI/MRA SCAN Routine 04/22/2012 documented in this encounter Results Scan Doc: MRI/MRA (04/22/2012) Anatomical Region Laterality Modality Other Narrative This result has an attachment that is no t available. Faustino Calvillo MD MEDIA MGR SCAN EXT ORDR/RSLT documented in this encounter Visit Diagnoses Not on filedocumented in this encounter Care Teams Director Of Tax Services Relationship Specialty Start Date End Date Faustino Calvillo MD PCP - General 05/04/12 [address] [place], [place] [id number] documented as of this encounter
--- OUTSIDE RECORDS SUMMARY | 2022-05-10 13:06 | XMS_ITS | Encounter Summary ---
:1965 [place] [address] Care Team Providers Name Role Phone Faustino Calvillo MD Primary Care Provider Encounter Details Date Type Department Care Team Description 07/10/2012 Abstract [facility] Center at [facility] [place] [address] Social History Tobacco Use Types Packs/Day Years Used Date Current Every Day Smoker Cigarettes 1 25 Smokeless Tobacco: Never Used Comments: avs information given Sex Assigned at Date Recorded Not on file documented as of this encounter Plan of Treatment Not on filedocumented as of this encounter Visit Diagnoses Not on filedocumented in this encounter Care Teams Threshing Machine Operator Relationship Specialty Start Date End Date Faustino Calvillo MD PCP - General 05/04/12 [address] [facility] [place] [address] documented as of this encounter
--- OUTSIDE RECORDS SUMMARY | 2022-05-10 13:06 | XMS_ITS | Encounter Summary ---
:1965 Author Organization [facility] [place] [address] Care Team Providers Name Role Phone Faustino Calvillo MD Primary Care Provider Reason for Visit Reason Comments Cervicalgia Encounter Details Date Type Department Care Team Description 07/28/2012 Procedure visit Pain Management at [facility] Cerv icalgia (Primary [facility] [place]) [address] [id number] [phone] Social History Tobacco Use Types Packs/Day Years Used Date Current Every Day Smoker Cigarettes 1 25 Smokeless Tobacco: Never Used Comments: avs information given Sex Assigned at Date Recorded Not on file documented as of this encounter Last Filed Vital Signs Vital Sign Reading Time Taken Comments Blood Pressure 155/102 07/28/2012 7:54 AM EST Pulse 72 07/28/2012 7:54 AM EST Temperature - - Respiratory Rate 16 07/28/2012 7:54 AM EST Oxygen Saturation 97% 07/28/2012 7:54 AM EST Inhaled Oxygen Concentration - - Weight 122.5 kg (270 lb) 07/28/2012 7:31 AM EST Height 182.9 cm (6') 07/28/2012 7:31 AM EST Body Mass Index 36.62 07/28/2012 7:31 AM EST documented in this encounter Patient Instructions Patient InstructionsNahomi Garcia, RODRIGUE - 07/28/2012 7:43 AM EST Pain Management Center Discharge Instructions: You were seen by Dr. Camryn ADAM, Chandu who performed cervical medial branch block. [x] You may resume your normal activities: today. You may shower today. DO NOT tub [...] for 20 minutes.Do not apply heat today. Attempt to empty your bladder 4-6 hours after your procedure. You received the following medications: Sensorcaine. During regular business hours, please phone the [...] or proceed to your local emergency department. Nahomi Garcia LPN Special instructions Pain Management Center Post -Procedure Pain Log Patient: Santosh Germain [id number] It is important for you to keep track of your pain after your procedure that took place 07/28/2012. This information will help your Provider to determine how to help reduce your pain. Today you had a procedure for pain in your Neck. Your pain level before the procedure in this area was 5/10. Your pain level immediately after your procedure was 0/10. Time Pain Score Comments 1 hour 2 hours 3 hours 4 hours Please call the nurse in the Pain Management Center a day or two after your procedureand report the information above. She will assess your response to the procedure, and will recommendappropriate follow-up. documented in this encounter Progress Notes Nahomi Garcia LPN - 07/28/2012 7:32 AM EST Pre-Procedure Screening Questions: 1. Status: No 2. 3. Patient states they have a scoop driver to transport after procedure? Yes 4. Patient taking antibiotics at present? No 5. NPO per Pain Management Center protocol? No 6. 7. Patient diabetic: No __ borderline (not treated with medications) __ managed with oral medications __ managed with injected medications 8. Patient routinely taking anticoagulants ? No Date stopped Current INR Patient Vital Signs documented in Doc Flowsheets associated with this encounter. Patient Discharge Instructions were reviewed with patient and copy provided to patient. documented in this encounter Procedure Notes [facility] - 07/28/2012 8:02 AM ESTAssociated Order(s): NERVE BLOCK - CERVICAL/THORACIC Procedure(s): NERVE BLOCK - CERVICAL/THORACIC Pre-Procedure Diagnose(s): Cervicalgia CERVICAL MEDIAL BRANCH BLOCKS Date of Service: 07/28/2012 Patient: Santosh Germain Provider: CHANDU COWAN MD Santosh Germain has been referred to the Pain Management Center for right cervical medial branch blocks. COMMENTS: right neck and shoulder pain. Mr. Germain was interviewed and the medical record reviewed. There were no medical, pharmacologic, radiographic or other structural contraindications to attempting fluoroscopically guided local anesthetic cervical medial branch blocks. Risks and expected side effects as well as potential benefit of the procedure were reviewed with Mr. Germain, and his voiced concerns addressed. The printed consent form was signed and witnessed. Standard time-out procedure was performed. Mr. Germain was placed in the prone position on the fluoroscopy table and automated blood pressure cuff and pulse oximeter applied. The skin entry points for approaching the anatomic target points of the segmental medial branches of Right C5, C6 and C7 were identified with fluoroscopy and marked. Following thorough Chlorhexadine preparation of the skin and draping and 1% lidocaine infiltration of the skin entry points and subcutaneous tissues, a 25 gauge spinal needle was placed under fluoroscopic guidance down on to the target point for each respective segmental medial branch. Position was confirmed in A/P and leteral views with 0.25ml of omnipaque 240 injected at each level. At each point 0.3ml 0.5% bupivicaine was injected. Mr. Germain's vital signs were stable throughout the procedure and were as recorded in the docflowsheet by the nursing staff. Follow up plans and appointments were discussed with Mr. Germain. Mr. Germain was instructed to keepcareful note of how the usual pain was modified by these injections. Specifically, the patient was asked to keep a pain diary for the next 24 hours using a numeric pain scale of 0-10 and report these results at the follow-up visit. Post procedure instruction was given as documented in the nursing documentation and having met discharge criteria, he was discharged from the Pain Management Center. Based on the medial branches blocked today, if they patient has adequate relief and we are able to proceed to radiofrequency ablation, the treatment should result in the denervation of the right C5-6, C6-7 and C7-T1. We would expect to denervate a total of 3 facets during the radiofrequency ablation. COMMENTS: patient will follow up with Dr. Borrero. CC: Faustino Calvillo MD @PCPADD@ documented in this encounter Miscellaneous Notes Miscellaneous - Provider, Teena - 07/30/2012 8:55 AM EST documented in this encounter Plan of Treatment Not on filedocumented as of this encounter Procedures Procedure Name Priority Date/Time Associated Diagnosis Comme nts NERVE BLOCK - Routine 07/28/2012 8:04 AM Cervicalgia Results for this CERVICAL/THORACIC EST procedure are in the results section. documented in this encounter Results NERVE BLOCK - CERVICAL/THORACIC (07/28/2012 8:04 AM EST) Narrative [facility] - 07/28/2012 8:04 AM EST [facility] MD ? 07/28/2012 ??8:04 AM CERVICAL MEDIAL BRANCH BLOCKS Date of Service: ??07/28/2012 Patient: ??Santosh Germain ?? MRN: ??[id number] Provider: ??MD Santosh QIUgles has been referred to the Pain Management Center for right cervical medial branch blocks. ?? COMMENTS: right neck and shoulder pain. Mr. Germain was interviewed and the [facility] record reviewed. ?? There were no medical, pharmacologic, ra diographic or other structural contraindications to attempti ng fluoroscopically guided local anesthetic cervical medial branch blocks. ??Risks and expected side effects as well as potenti al benefit of the procedure were reviewed with Mr. Germain , and his voiced concerns addressed. ??The printed consent form wa s signed and witnessed. ?? Standard time-out procedure was performe d. Mr. Germain was placed in the prone posi tion on the fluoroscopy table and automated blood pressure cuff and pulse oximeter applied. ??The skin entry points for zuleyma roaching the anatomic target points of the segmental medial br anches of Right C5, C6 and C7 were identified with fluoroscopy and marked. ?? Following thorough Chlorhexadine prepara tion of the skin and draping and 1% lidocaine infiltration of the skin entry points and subcutaneous tissues, a 25 gauge spi nal needle was placed under fluoroscopic guidance down on to t he target point for each respective segmental medial branch. Posi tion was confirmed in A/P and leteral views with 0.25ml of omnipaq ue 240 injected at each level. At each point 0.3ml 0.5% bupivica ine was injected. ?? Mr. Germain's vital signs were stable th roughout the procedure and were as recorded in the docflowsheet by the nursing staff. Follow up plans and appointments were di scussed with Mr. Germain. Mr. Germain was instructed to keep care ful note of how the usual pain was modified by these injections. ? ?Specifically, the patient was asked to keep a pain diary for the n ext 24 hours using a numeric pain scale of 0-10 and report th oksana results at the follow-up visit. ??Post procedure instru ction was given as documented in the nursing documentation and having met discharge criteria, he was discharged from the [facility]. Based on the medial branches blocked tod ay, if they patient has adequate relief and we are able to proce ed to radiofrequency ablation, the treatment should result in the denervation of the right C5-6, C6-7 and C7-T1. We would exp ect to denervate a total of 3 facets during the radiofrequency ab lation. COMMENTS: patient will follow up with Dr Matilde Borrero. CC: Faustino Calvillo MD @PCPADD@ Procedure Note Camryn [facility] - 07/28/2012 8:02 AM ESTFo rmatting of this note might be different from the original. CERVICAL MEDIAL BRANCH BLOCKS Date of Service: 07/28/2012 Patient: Santosh Germain Provider: CHANDU COWAN MD Santosh Germain has been referred to the Pain Management Center for right cervical medial branch blocks. COMMENTS: right neck and shoulder pain. Mr. Germain was interviewed and the [facility] record reviewed. There were no medical, pharmacologic, radiographic or other structural contraindications to attempting fluoroscopically guided local anesthetic cervical medial branch blocks. Risks and expected side effects as well as potential benefit of the procedure were reviewed with Mr. Germain, and his voiced concerns addressed. The printed consent form was signed and witnessed. Standard time-out procedure w as performed. Mr. Germain was placed in the prone posi tion on the fluoroscopy table and automated blood pressure cuff and pulse oximeter applied. The skin entry points for approaching the anatomic target points of the segmental medial branches of Right C5, C6 and C7 were identified with fluoroscopy and marked. Following thorough Chlorhexadine preparation of the skin and draping and 1% lidocaine infiltration of the skin entry points and subcutaneous tissues, a 25 gauge spinal needle was pl aced under fluoroscopic guidance down on to the target point for each respective segmental medial branch. Position was confirmed in A/P and leteral views with 0.25ml of omnipaque 240 injected at each level. At each poin t 0.3ml 0.5% bupivicaine was injected. Mr. Germain's vital signs were stable th roughout the procedure and were as recorded in the docflowsheet by the nursing staff. Follow up plans and appointments were di scussed with Mr. Germain. Mr. Germain was instructed to keep careful note of how the usual pain was modified by these injections. Specifically, the patient was asked to keep a pain diary for the next 24 hours using a numeric pain scale of 0-10 and report these results at the follow-up visit. Post procedure instruction was given as documented in the nursing documentation and having met discharge criteria, he was discharged fr om the Pain Management Center. Based on the medial branches blocked tod ay, if they patient has adequate relief and we are able to proceed to radiofrequency ablation, the treatment should result in the denervation of the right C5-6, C6-7 and C7-T1. We would expect to denervate a to hawa of 3 facets during the radiofrequency ablation. COMMENTS: patient will follow up with Dr Matilde Borrero. CC: Faustino Calvillo MD @PCPADD@ [facility] MD PROCEDURE/MINOR SURGICAL ORD ERABLES documented in this encounter Visit Diagnoses Diagnosis Cervicalgia - Primary documented in this encounter Administered Medications Inactive Administered Medications - up to 3 most recent administrations Medication Order MAR Action Action Date Dose Rate Site BUpivacaine (PF) (MARCAINE) 0.5 % Given 07/28/2012 7:30 AM EST 5 0 mg (5 mg/mL) injection 50 mg 50 mg (10 mL), Subcutaneous, ONCE, 1 dose, On Fri07/28/12 at 0730, Wasted 20 ml, Routine documented in this encounter Care Teams Filler Feeder Relationship Specialty Start Date End Date Faustino Calvillo MD PCP - General 05/04/12 [address] [place], [place] [address] documented as of this encounter
[2022-05-10 13:30] VITALS: BP 128/84; PULSE 80; RESP 16; TEMP 36.8; O2SAT 97
--- NOTE | 2022-05-10 13:32 | W.ANESPRE ---
General Info Date of Service Date Performed: 05/10/22 Height: 6 ft Weight: 121.563 kg Body Mass Index (BMI): 36.3 Surgical Procedure: Operation Date: 05/10/22 13:35 Proposed Procedure Side Surgeon mellissa Freeman MD Meds Allergies and Home Medications Allergies Allergy/AdvReac Type Severity Reaction Status Date / Time cephalexin monohydrate AdvReac Intermediate Hives Verified 05/10/22 13:28 [From Keflex] Home Medication Medication Instructions Recorded acetaminophen 500 mg tablet 1,000 mg PO daily prn 01/04/13 (Tylenol Extra Strength) blood-glucose meter (OneTouch ##1 07/22/17 Verio Meter) blood sugar diagnostic (OneTouch #90 strips 08/02/20 Verio test strips) lancets (The fresh GroupTouch UltraSoft #90 ea 08/02/20 Lancets) fluticasone propionate 50 2 spray intranasal DAILY #48 grams 04/02/21 mcg/actuation nasal spray,suspension dulaglutide 3 mg/0.5 mL 3 mg (0.5 mL) subcut QWEEK #2 mL 01/16/22 subcutaneous pen injector (Seva Search) metformin 500 mg tablet,extended 500 mg PO QPM #90 tabs 02/27/22 release 24 hr losartan 25 mg tablet 25 mg PO DAILY #90 tabs 05/02/22 clotrimazole 1 % topical cream 1 applic topical BID PRN 05/09/22 Current Visit Medications: Current Medications Generic Name Dose Route Start Last Admin Trade Name Freq PRN Reason Stop Dose Admin Hyoscyamine Sulfate 0.125 mg 05/09/22 20:58 Hyoscyamine 0.125 Mg Sl/Oral/Chew SL DIRECTED PRN Ringer's Solution 1,000 mls @ 80 mls/hr 05/10/22 06:00 IV 06/08/22 23:59 INFUSION [facility] IV Miscellaneous Supplies 1 each 05/10/22 06:00 Iv Access IV 06/08/22 23:59 DIRECTED [facility] Ondansetron HCl 4 mg 05/09/22 20:58 Ondansetron 4 Mg/2 Ml Vial IVP Q4H PRN PRN Nausea / Vomiting Sodium Chloride 0 ml 05/10/22 06:00 Normal Saline Flush 10 Ml Syr IV 06/08/22 23:59 PRN PRN Sodium Chloride 0 ml 05/10/22 06:00 Normal Saline 10 Ml Vial IJ 06/08/22 23:59 DIRECTED PRN Sterile Water 0 ml 05/10/22 06:00 Water,Injection,Sterile 10 Ml Vial IJ 06/08/22 23:59 DIRECTED PRN PFSH Active Problems Active Problems: Problem Status Onset Code Adrenal nodule E27.8 Contusion of right elbow, initial encounter S50.01XA Abrasion, left knee, initial encounter S80.212A Eczema L30.9 Giant comedone L70.0 Umbilical hernia K42.9 Tobacco abuse Z72.0 Varicose veins of lower extremity 01/04/13 I83.90 Type 2 diabetes mellitus without complication, without long-term current use of insulin 06/10/17 E11.9 Tubular adenoma D36.9 Smoker 01/04/13 F17.200 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 Obesity 01/04/13 E66.9 Nevus, non-neoplastic I78.1 Hyperlipidemia E78.5 Hemorrhoids K64.9 Medical History Medical History Right anterior shoulder pain Surgical History Surgical History Mole removal Tobacco Smoking/Tobacco Use Status: Current every day Tobacco Type: cigarettes Passive smoking exposure: Yes Second hand exposure: Yes Alcohol Alcohol Intake: former Substance Use Substance use: Never Substance use type: does not use Vital Signs and Lab Results Vital Signs Most Recent Vital Signs in EMR: Most Recent Vital Signs Temp Pulse Resp BP Pulse Ox 36.8 C 80 16 128/84 97 05/10/22 13:30 05/10/22 13:30 05/10/22 13:30 05/10/22 13:30 05/10/22 13:30 Lab Results Blood Type / Crossmatch: No Data to Display Complete Blood Count: No Data to Display Complete Metabolic Panel: No Data to Display Liver Function Panel: No Data to Display Coagulation Panel: No Data to Display Cardiac Panel: No Data to Display Arterial Blood Gas: No Data to Display Venous Blood Gas: No Data to Display Pancreas Panel: No Data to Display Thyroid Panel: No Data to Display Infectious Disease: No Data to Display Blood Cultures: No Data to Display Toxicology Panel: No Data to Display Anesthesia Assessment and Plan Anesthesia History Personal History: No History of Anesthesia Complications Family History: No Family History of Anesthesia Complications Exercise Tolerance Exercise Tolerance: Metabolic Equivalents>4 Pertinent Negatives Pertinent Negatives: No Symptoms of GERD, No Major Cardiovascular Symptoms or Complaints and No Major Pulmonary Symptoms or Complaints Cardiac & Pulmonary Exam Cardiac Exam: Normal S1/S2 Heart Sounds Pulmonary Exam: Clear Bilateral Breath Sounds Implantable Cardiac Device Does patient have a Pacemaker or an ICD?: No Airway Exam Known Difficult Airway: No Mallampati Class: 2 Mouth Opening: Normal (> 3cm) Thyromental Distance: Greater than 3 cm Facial Hair: Full Blank Neck Range of Motion: Full ROM Neck Circumference: Thick Teeth Condition: Normal Dentition ASA Classification ASA Score: ASA 2 Emergency Case?: No NPO Status NPO Status: NPO Clears >2 hours, Solids >8 hours Anesthesia Plan Resuscitation Status: Full Code Anesthesia Technique: General Anesthesia Airway Planned: Natural Airway Monitors Used: Standard Monitors
[2022-05-10 13:35] VITALS: BMI 36.3
[2022-05-10] MEDS: Lactated Ringers 1,000 ML 80 ML IV (13:35)
--- NOTE | 2022-05-10 14:01 | BOWEL_PTH ---
PATIENT: Santosh Germain LOC: [facility] U#:[id number] AGE/SX: 57/M ROOM: RE05/10/[address]: Gordo Freeman MD : 1965 BED: DIS: 05/10/2022 SPEC #: [id number] RECD: 05/10/22 15:44 STATUS: ESTELLA REQ #: [id number] GAGAN: 05/10/22 14:[address]: Gordo Freeman DEPT: Surgical Specimen RECD BY: Skyla Castorena ENTERED: 05/10/22 15:45 SP TYPE: Bowel OTHR DR: Matthias Jimenes MD Tissues: 1 - BIOPSY BOWEL 2 - BIOPSY BOWEL Procedures: GROSS AND MICRO LEVEL 4 Comments: [id number]
[2022-05-10 14:13] VITALS: BP 114/89; PULSE 84; RESP 18; TEMP 36.5; O2SAT 94
--- NOTE | 2022-05-10 14:27 | W.ANESPOSTOP ---
Postoperative Evaluation Date, Time and Location Date Performed: 05/10/22 Time Performed: 14:15 Patient Location: Day Surgery Unit Vital Signs Most Recent Imported Vital Signs: Most Recent Vital Signs Temp Pulse Resp BP Pulse Ox 36.5 C 84 18 114/89 94 05/10/22 14:13 05/10/22 14:13 05/10/22 14:13 05/10/22 14:13 05/10/22 14:13 Pain Score Most Recent Pain Score: Most Recent Pain Score Pain Level 0 05/10/22 13:30 Assessment Mental Status: Awake (Alert & Oriented to Patient Baseline) Airway and Respiratory Function: Patent airway with normal (patient baseline) respiratory exam Cardiovascular Function: Hemodynamically Stable Hydration Status: Adequately Hydrated Nausea & Vomiting: No Nausea or Vomiting Pain: Pt. Denies Any Pain Peripheral Nerve Block: Patient did not receive a nerve block
[2022-05-10 14:31] VITALS: PULSE 69; RESP 18; TEMP 36.5; O2SAT 97
== END 2022-05-10 14:45 | disposition home or self-care (01) ==
PROVIDERS: PCP Family Medicine; Visit Provider Surgery
PROC: 0DJD8ZZ Inspection of Lower Intestinal Tract, Via Natural or Artificial Opening Endoscopic (ICD-10-PCS; CPT 45378; principal; 2022-05-10 13:30)
DX: Z12.11 Encounter for screening for malignant neoplasm of colon (principal); K63.5 Polyp of colon; K62.1 Rectal polyp; Z86.010 Personal history of colon polyps
CPT/HCPCS: 45385; 45380; 88305

== ENCOUNTER 2022-10-24 16:48 | Outpatient (REF) | payer OTHER, SELFPAY ==
[2022-10-24 22:13] LABS: COMMENT (LAB VIEW ONLY) 83.32 mg/dL; Microalb ug/mg Crea 7.9 ug/mg Cr
== END 2022-10-24 16:49 | disposition home or self-care (01) ==
LOC: LBN 16:48
PROVIDERS: PCP Family Medicine; Visit Provider Family Medicine
DX: E11.9 Type 2 diabetes mellitus without complications (principal)
CPT/HCPCS: 82043; 82570

== ENCOUNTER 2023-01-27 15:03 | Outpatient (CLI) | payer OTHER, SELFPAY ==
--- NOTE | 2023-01-27 15:00 | DI.RAD_ITS ---
Exam(s) XR ANKLE LT COMPLETE EXAM: XR ANKLE LT COMPLETE CLINICAL HISTORY: left ankle pain TECHNIQUE: 2D digital imaging was performed of the left ankle. Three images were obtained. AP, lat eral and oblique views were obtained. COMPARISON: CR LEFT ANKLE COMPLETE from 06/09/2014 FINDINGS: BONES: No acute fracture is present. No bony destructive lesion is seen. There is a large plantar carson caneal spur. There is a small enthesophyte at the posterior calcaneus. JOINTS:The ankle mortise is normally aligned. SOFT TISSUE: Normal. IMPRESSION: No acute abnormality. DATA REPOSITORY: RADIATION DOSE DELIVERED:
== END 2023-01-27 15:04 | disposition home or self-care (01) ==
LOC: DIORS 15:03
PROVIDERS: PCP Family Medicine; Referring Provider Family Medicine; Visit Provider Physician Assistant
DX: M25.572 Pain in left ankle and joints of left foot (principal); M77.32 Calcaneal spur, left foot
CPT/HCPCS: 73610

== ENCOUNTER 2023-01-31 01:32 | Outpatient (CLI) | payer OTHER, SELFPAY ==
[2023-01-31 12:32] LABS: CREATININE 0.9 mg/dL (0.70-1.30); Calculated LDL 115 mg/dL (<100); Cholesterol 181 mg/dL (<200); HDL Cholesterol 38 mg/dL (40-60); Potassium 4.3 mmol/L (3.5-5.1); Triglyceride 143 mg/dL (<150)
[2023-01-31 19:55] LABS: PSA, Screening 1.2 ng/mL (<=3.5)
== END 2023-01-31 01:33 | disposition home or self-care (01) ==
LOC: LOS 01:33
PROVIDERS: PCP Family Medicine; Visit Provider Family Medicine
DX: I10 Essential (primary) hypertension (principal); E78.5 Hyperlipidemia, unspecified; Z12.5 Encounter for screening for malignant neoplasm of prostate
CPT/HCPCS: 36415; 80061; 84153; 82565; 84132

== ENCOUNTER → 2023-05-15 01:20 | Outpatient (CLI) | payer OTHER, SELFPAY ==
--- NOTE | 2023-05-15 14:00 | DI.MRI_ITS ---
Exam(s) MR LOWER JOINT LT WO EXAM: MR LOWER JOINT LT WO CLINICAL HISTORY: PAIN M25.572 PAIN LT ANKLE TECHNIQUE: Multiplanar multisequence MRI was performed without intravenous contrast. COMPARISON: MR MRI L LOWER JOINT WO CONT from 07/25/2016 CR XR ANKLE LT COMPLETE from 01/27/2023 FINDINGS: BONES/JOINTS: There is some edema again noted in the medial talar dome without overlying osteochondra l defect. small subchondral cysts. No subchondral collapse. Mild increase in size since the previ ous exam. Findings may be degenerative. No bone lesions identified. The talar dome is smooth. The a nkle mortise is maintained. No joint effusion is present. Prominent plantar calcaneal spur. LIGAMENTS: The tibiofibular and calcaneofibular ligaments are intact. The talofibular ligaments are i ntact. The deltoid ligament is intact. The syndesmosis is unremarkable. Sinus tarsi is normal. MUSCULOTENDINOUS STRUCTURES: Achilles tendon: Unremarkable. Plantar fascia: Unremarkable. Anterior Extensor tendons: Unremarkable. Posterior Tibialis: Unremarkable. Flexor Digitorum longus: Unremarkable. Flexor Hallucis longus: Unremarkable. Peroneus longus: Unremarkable. Peroneus brevis:Unremarkable. SOFT TISSUES: Mild edema in the fat anterior to the Achilles tendon. IMPRESSION: Mild interval increase in edema and subchondral cysts in medial talar dome. No tendon abnormality. DATA REPOSITORY:
== END ==
PROVIDERS: PCP Family Medicine; Visit Provider Student in an Organized Health Care Education/Training Program
DX: M85.662 Other cyst of bone, left lower leg (principal)
CPT/HCPCS: 73721

== ENCOUNTER 2024-03-15 12:15 | Outpatient (CLI) | payer OTHER, SELFPAY ==
[2024-03-15 15:01] LABS: Hemoglobin A1C 7.3 % (<5.7)
[2024-03-15 15:38] LABS: CREATININE 1.1 mg/dL (0.70-1.30); Estimated GFR 76.85 (mL/min/1.73m2); Potassium 4.1 mmol/L (3.5-5.1)
== END 2024-03-15 12:16 | disposition home or self-care (01) ==
LOC: LBO 12:15
PROVIDERS: PCP Family Medicine; Visit Provider Family Medicine
DX: I10 Essential (primary) hypertension (principal); E11.51 Type 2 diabetes mellitus with diabetic peripheral angiopathy without gangrene; I70.209 Unspecified atherosclerosis of native arteries of extremities, unspecified extremity
CPT/HCPCS: 36415; 82565; 83036; 84132

== ENCOUNTER 2024-11-25 18:32 | Outpatient (REF) | payer OTHER, SELFPAY ==
[2024-11-25 21:14] LABS: COMMENT (LAB VIEW ONLY) 177.64 mg/dL; Microalb ug/mg Crea 10.1 ug/mg Cr
== END 2024-11-25 18:33 | disposition home or self-care (01) ==
LOC: LBN 18:32
PROVIDERS: PCP Family Medicine; Visit Provider Family Medicine
DX: E11.9 Type 2 diabetes mellitus without complications (principal)
CPT/HCPCS: 82043; 82570

== ENCOUNTER 2025-04-22 00:12 | Outpatient (CLI) | payer OTHER, SELFPAY ==
[2025-04-22 15:23] LABS: Calculated LDL 142 mg/dL (<100); Cholesterol 206 mg/dL (<200); Estimated GFR 97.17 (mL/min/1.73m2); HDL Cholesterol 41 mg/dL (>or=40); Potassium 4.2 mmol/L (3.5-5.1); Triglyceride 118 mg/dL (<150)
[2025-04-23 06:00] LABS: ALT 33 U/L (16-63); AST 16 U/L (15-37)
== END 2025-04-22 00:13 | disposition home or self-care (01) ==
LOC: LOS 00:12
PROVIDERS: PCP Family Medicine; Visit Provider Family Medicine
DX: I10 Essential (primary) hypertension (principal); Z13.220 Encounter for screening for lipoid disorders; E78.5 Hyperlipidemia, unspecified
CPT/HCPCS: 36415; 80061; 82565; 84132; 84450; 84460